=== PATIENT | female | born 1990 | race Caucasian/White ===

== ENCOUNTER 2025-08-25 01:25 | Emergency (ER) | payer OTHER, SELFPAY ==
--- NOTE | ~2025-08-25 | XR_ITS ---
CLINICAL HISTORY: laceration ACROSS BASE OF FINGERS 3-5 3 views left hand Comparison: None provided Findings: There is no fracture or dislocation. Joint spaces appear normal. There are multiple tiny hyperdense foreign bodies on or beneath the skin of the proximal 3rd through 5th digits. Impression: 1. No osseous abnormality. 2. Multiple tiny hyperdense foreign bodies on or beneath the skin of the proximal 3rd through 5th digits This document has been electronically signed by: John Chen MD on 08/25/2025 02:20:40
[2025-08-25 01:32] VITALS: BP 126/93; PULSE 127; RESP 22; TEMP 36.4; O2SAT 99
--- NOTE | 2025-08-25 01:54 | PC.NURSE ---
pt was taken to x-ray and back in room, pt no longer room, notified charge nurse.
--- OUTSIDE RECORDS SUMMARY | 2025-08-25 02:09 | XMS_ITS | Clinical Summary ---
Author Organization [facility] [address] [place] [address] [place] [phone] Phone Care Team Providers Care Safety Physician Name Role Phone Adelaida Eagle MD Primary Care Pr ovider Allergies No known active allergies Medications albuterol 2.5 mg /3 mL (0.083 %) nebulizer solution Take 1 Vial by nebulization every 4 hours as needed for Wheezing. 4 Active albuterol HFA (PROAIR HFA ; PROVENTIL HFA ; VENTOLIN HFA) 90 mcg/actuation inhaler Inhale 2 Puffs into the lungs every 6 hours as needed for Cough, Wheezing or Shortness of Breath. 4 Active budesonide (Pulmicort Flexhaler) 90 mcg/actuation inhaler Inhale 2 Puffs into the lungs 2 times daily. 4 Active fluticasone-douglas meterol (ADVAIR DISKUS) 250-50 mcg/dose diskus inhaler Inhale 1 Puff into the lungs 2 times daily. 4 Active inhalational spacing device (Aerochamber MV) inhaler 1 Device by Does not apply route as needed. Active traMADoL (ULTRAM) 50 mg tablet Take 1 Tablet by mouth every 8 hours as needed for Pain. 4 Active hydrOXYzine HCL (ATARAX) 25 mg tablet Take 1 tablet (25 mg total) by mouth 3 (three) times a day if needed. 5 Active ibuprofen (ADVIL,MOTRIN) 600 mg tablet Take 1 tablet (600 mg total) by mouth every 6 (six) hours if needed. 5 Active lamoTRIgine (LaMICtal) 25 mg tablet TAKE 1 TABLET BY MOUTH ONCE A DAY TAKE ONE TABLET ONCE A DAY FOR 7 DAYS, THEN ONE TABLET TWICE A DAY 5 Active cyclobenzaprine (FLEXERIL) 5 mg tablet TAKE 1-2 TABLETS BY MOUTH AT BEDTIME ENEDED 5 Active naltrexone (DEPADE) 50 mg tablet Take 1 tablet (50 mg total) by mouth 1 (one) time each day. 5 Active medroxyPROGESTE Rock (Depo-Provera) 150 mg/mL injection Inject 1 mL (150 mg total) into the shoulder, thigh, or buttocks every 3 (three) months. 1 mL 3 5 Active Active Problems Problem Noted Date Diagnosed Date ADHD 09/01/2018 Obesity (BMI 30.0-34.9) 03/23/2018 Recurrent vaginitis 08/19/2017 Overview (10/19/2024): LAST PAPSMEAR 2012 --SHE SHOULD have annual or at next visit just obtain PAP SMEAR MULITPLE visits for vaginitis w/o improvement Mild persistent asthma without complication 02/13 Alcohol use disorder in remission 01/16/2013 Overview (10/19/2024): 01/16/2013 Pt is enrolled in AA Immunizations Immunization Administration Dates Next Due DTP 04/15/1997, 5,01/08/1993,10/31,1992 [id number] (Pentacel) 2mo to less than 5yo 10/07/1993,01/08/1993,1992,09/04 HPV, Quadrivalent 03/19/2008,08/31/2007 Hepatitis B (Tctfcgn-D-Zokyu , Recombivax HB-Adult) 19yo and older 07/31/2012 Hepatitis B Pediatric (Enger ix B; Recombivax HB) to less than 20 yo 10/07/1993,1992,1992 IPV Inactivated polio (Ipol) 6wks and older 04/15/1997,09/06/1995,1992,09/04 Influenza trivalent, 0.5mL, preservative free (Fluarix; FluLaval; Fluzone) ages 6mo and older (Afluria) 3 years and older 09/04/2015 Influenza trivalent, with pr eservative (Fluzone; Afluria) 6mo and older 11/29/2013,11/04/2010 MMR, measles mumps and rubel la Live (Priorix; M-M-R II) 12mo and older 07/31/2012,04/15/1997,10/07/1993 Meningococcal MCV4P 08/31/2007 PPD Test 07/08/2015 Td Tetanus diptheria (Tdvax) 7yo and older 06/05/2003 Tdap Tetanus diptheria acell ular pertussis (Boostrix; Adacel) 7yo and older 02/27/2023,04/24/2014,08/31/2007 Surgical History Surgery Date Site/Laterality Comments WISDOM TOOTH EXTRACTION 2014 PROCEDURE: HISTORICAL WISDOM TEETH EXTRACTION Medical History Medical History Date Comments Asthma 01/15/2013 DX:Asthma; COMME NT: no curretn meds Elevated TSH DX:Elevated TSH Mild persistent asthma with exacerbation 04/17/2021 DX:Mild persistent asthma wi th exacerbation Family History Medical History Relation Name Comments No Known Problems Brother Other: unknown Father Other: Heart disease Maternal Grandmother htn Hypertension Mother thyroid disorde r Diabetes Paternal Grandmother No Known Problems Sister Relation Name Status Comments Brother Alive Father Alive Maternal Grandfather Maternal Grandmother Mother Alive Paternal Grandfather Alive Paternal Grandmother Sister Alive Social History Tobacco Use Types Packs/Day Years Used Date Smoking Tobacco: Former Cigarettes Q uit: 06/05/2024 Smokeless Tobacco: Never Tobacco Cessation:Counseling Given: Not Answered Alcohol Use Standard Drinks/Week Comments No 0 (1 standard drink = 0.6 oz pur e alcohol) Comments No Sex and Gender Information Value Date Recorded Sex Assigned at Not on file Legal Sex Female 10:46 PM EST Gender Identity Not on file Sexual Orientation Not on file Obstetrics History * This document contains information received from the source organization and may not represent a complete record from that organization. Para Term AB IAB SAB Ectopic Multiple Livin g Live Births 4 1 1 0 0 0 1 1 Date Outcome GA Total Labor Labor/2nd/3rd Weight Sex Type Anes PTL Sudha A1 A5 Name Clin 2011 2012 2013 Term 40w 0d 7h 33m/ 3118 g (110 oz) F Vag-S pont Epidur al Livin g 9 9 Callib ay Evelina Martinez n CNM Delivery Location:[facility] 3 Last Filed Vital Signs Vital Sign Reading Time Taken Comments Blood Pressure 107/81 05/24/2025 10:25 AM EDT Pulse 95 05/24/2025 10:25 AM EDT Temperature - - Respiratory Rate 14 05/24/2025 10:25 AM EDT Oxygen Saturation 98% 03/29/2024 11:42 AM EDT @ rest on R.A. Inhaled Oxygen Concentration - - Weight 75.8 kg (167 lb) 05/24/2025 10:25 AM EDT Height 160 cm (5' 3 ) 07/10/2024 10:08 AM EDT Body Mass Index 29.58 07/10/2024 10:08 AM EDT Plan of Treatment Health Maintenance Due Date Last Done Comments HPV Vaccines (3 - 3-dose series) 06/11/2008 03/19/2008, 08/31/2007 Hepatitis A Vaccines (1 of 2 - Risk 2-dose series) 2011 Pneumococcal Vaccine: Pediatrics (0 to 5 Years) and At-Risk Patients (6 to 49 Years) (1 of 2 - PCV) 2011 Social Influencers of Health Screening 10/17/2022 Cervical Cancer Screening: HPV 08/31/2024 08/31/2019 Depression Screening 11/14/2024 COVID-19 Vaccine (2 - 2024- season) 2025 09/11/2021 Influenza Vaccine (#1) 2025 5, 11/29/2013, 11/04/2010 Cholesterol Screening (Lipid Panel) 03/26/2029 03/26/2024, 03/26/2024 DTaP,Tdap,and Td Vaccines (10 - Td or Tdap) 02/27/2033 02/27/2023, 04/24/2014, 08/31/2007, Additional history exists RSV Immunization Adult Patients (1 - 1-dose 75+ series) 2067 HIB Vaccines Completed 10/07/1993, 12/16, 1992, Additional history exists IPV Vaccines Completed 04/15/1997, 08/15, 10/07/1993, Additional history exists Meningococcal ACWY Vaccine Aged Out 08/31/2007 N o longer eligible based on patient's age to complete this topic Hepatitis B Vaccines Completed 07/31/2012, 10/07/1993, 1992, Additional history exists MMR Vaccines Completed 07/31/2012, 12/1996, 10/07/1993 HIV Screening Completed 05/24/2025, 07/23/2021 Hepatitis C Screening Completed 05/24/2025, 021 Meningococcal B Vaccine Aged Out No l onger eligible based on patient's age to complete this topic RSV Immunization Patients Under 20 months Aged Out No longer eligible based on patient's age to complete this topic Varicella Vaccines Aged Out No longer eligible based on patient's age to complete this topic Procedures Procedure Name Priority Date/Time Associated Diagnosis Comments HEPATITIS C ANTIBODY Routine 05/24/2025 10:34 AM EDT Screen for STD (sexually transmitted disease) HIV 1, 2 ANTIBODY, P24 ANTIGEN WITH REFLEX TO DIFFERENTIATION Routine 05/24/2025 10:34 AM EDT Screen for STD (sexually transmitted disease) LIPID PANEL Routine 03/26/2024 HM HPV Routine 08/31/2019 from Last 3 Months or Most Recently Relevant to Health Maintenance Results * Hepatitis C antibody (05/24/2025 10:34 AM EDT) Hepatitis C Antibody Negative Negative LAB CHEMISTRY METHOD 05/24/2025 1:31 PM EDT [facility] ([facility]) [facility] Blood Venous blood specimen / Unknown Venipuncture / Unknown 05/24/2025 10:34 AM EDT 05/24/2025 10:34 AM EDT us Rebecca LASSITER LAB BLOOD ORDERABLES Final Resu lt [facility] [address] [place] [address], [place] [phone] * HIV 1,2 antibody, p24 antigen with reflex to differentiation (05/24/2025 10:34 AM EDT) [facility] HIV Combo AB/AG Negative Negative LAB CHEMISTRY METHOD 05/24/2025 1:32 PM EDT [facility] Blood Venous blood specimen / Unknown Venipuncture / Unknown 05/24/2025 10:34 AM EDT 05/24/2025 10:34 AM EDT Narrative [facility] - 05/24/2025 1:32 PM EDT This assay is a 4th generation assay allowing for earlier detection of HIV infection by detecting the presence of the HIV-1 p24 antigen as well as the traditional antibodies to HIV type 1 (including group O) and type 2. Use of a 4th generation assay is the current CDC recommendation for HIV screening. Rebecca Pressley CNM LAB BLOOD ORDERABLES Final Resu lt [facility] [address] [place] [address], [place] [phone] * Lipid panel (03/26/2024) [facility] LDL/HDL Ratio 3 0 - 4 Triglycerides 33 0 - 150 mg/dL Cholesterol 163 0 - 200 mg/dL HDL 59 >=40 mg/dL LDL Cholesterol 98 0 - 100 mg/dL Blood Venous blood specimen / Unknown Historical Provider LAB BLOOD ORDERABLES Dinorah l Result * Cervical Cancer Screening: HPV (08/31/2019) [facility] Cervical Cancer Screening: HPV Negative, Abstracted Historical Provider HEALTH MAINTENANCE Final Result from Last 3 Months or Most Recently Relevant to Health Maintenance Insurance [facility] Care Teams Safety Physician Relationship Specialty Start Date End Date Adelaida Eagle MD [address] [place] [phone] PCP - General 11/24/22
--- NOTE | 2025-08-25 02:45 | PC.NURSE ---
Late entry for 0210 After primary RN made Charge nurse aware of the pt's elopement both parties and additional staff conducted a search of the department and walked towards the cafe (out of the main hospital entrance) without any sightings of the patient at which time security was notified. sba underwriter asked if they could review the camera footage from the entrance to the [facility] to verify if she did in fact leave out of the doors. According to security, the pt was seen exiting the department behind a staff member who did not know she was nearby. Security also conducted further video review and determined that the pt independently exited out of the old ER entrance doors and they later even conducted an outside search of the premises to ensure she was not injured and/or down on the ground requiring assistance of any sort. Per security their search was completed without any sightings of the patient, fuel house attendant made aware.
--- NOTE | 2025-08-25 02:50 | PC.NURSE ---
Spoke to mom, genesis Graham found at [facility].
== END 2025-08-25 03:47 | disposition left against medical advice (07) ==
PROVIDERS: Emergency Provider Emergency Medicine; PCP Family Medicine
DX: M79.642 Pain in left hand (principal); Z53.21 Procedure and treatment not carried out due to patient leaving prior to being seen by health care provider
CPT/HCPCS: 73130; 99281

== ENCOUNTER → 2025-08-25 01:45 | Outpatient (BNV) | payer OTHER, SELFPAY | PROVIDERS: Visit Provider Radiology Diagnostic Radiology | DX: S61.223A Laceration with foreign body of left middle finger without damage to nail, initial encounter (principal); S61.225A Laceration with foreign body of left ring finger without damage to nail, initial encounter; S61.227A Laceration with foreign body of left little finger without damage to nail, initial encounter | CPT/HCPCS: 73130 ==